=== PATIENT | female | born 1955 | race Caucasian/White ===

== ENCOUNTER 2020-09-15 11:00 | Outpatient (RCR) | payer BC, SELFPAY ==
--- NOTE | 2020-08-23 11:44 | PTOPEVAL ---
INITIAL PHYSICAL THERAPY EVALUATION and PLAN OF CARE Thank you for referring Dea Guillen to [facility] [place] Dea is scheduled to be seen for physical therapy? 2x/week for 2 weeks then 1x/wk x 2 wks. Please review, sign, date and return this plan of care GT. I agree with and certify that the following plan of care is medically necessary. Referring Physician Date Admitting Provider: Attending Provider: Levi Abdi, Referring Provider: *JEFF Outpatient Evaluation Start: 08/23/20 10:36 Freq: Status: Active Protocol: Document 08/23/20 10:36 CHENTE (Rec: 08/23/20 11:43 CHENTE [id number]) Therapy Assessment Status Assessment Status Assessment Status Evaluation Outpatient Past Medical History Past Medical History Source of Past Medical History Patient Neurological History Hx Other Neurological Disorders Yes: peripheral neuropathy Cardiovascular History Hx Hypercholesterolemia Yes Hx Hypertension Yes Endocrine History Hx Diabetes Yes HEENT History Hx Tonsillectomy Yes: at age 6 or 7 Reproductive History Hx Hysterectomy Yes Evaluation Information Problem Diagnosis peripheral neuropathy Onset ~ 1 month ago Subjective Information Began to have trouble with Query Text:As Reported By Patient/ walking, balance. 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 Walking is slower than normal. No difficulties with getting dressed, housework, etc. Sometimes can feel her feet, sometimes they feel heavy. 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 Home calcium, fish oil, vitamin B Meds Must Be Re-entered With Each Visit. complex, extrodil - hormone replacement, baby aspirin Home Setting Home Type House,Multiple Levels Environmental Barriers Mika, Tile,Stairs, 2-4, Stairs, Greater than 4 Living Situation With Parent Mobility Assistive Devices (Used Last 3 None Months) Comments A
--- NOTE | 2020-09-15 12:09 | PTOPEVAL ---
PHYSICAL THERAPY DISCHARGE SUMMARY Thank you for referring Dea Guillen to [facility].? Dea has been seen in PT x 6 visits. She has made gains with gait pattern, balance ability on uneven surfaces, and returning to previous outdoor household activities. She is ready for d/c from PT to [facility]. I agree with Dea's discharge from PT. Referring Physician Date Admitting Provider: Attending Provider: Levi Abdi, Referring Provider: *PT Outpatient Evaluation Start: 08/23/20 10:36 Freq: Status: Active Protocol: Document 09/15/20 11:03 CHENTE (Rec: 09/15/20 12:08 CHENTE [id number]) Therapy Assessment Status Assessment Status Assessment Status Discharge Evaluation Information Problem Diagnosis peripheral neuropathy Subjective Information Dea reports that some Query Text:As Reported By Patient/ days are better than others. Family Some concern over her walking ability with return to work. She did state that she went back to cutting grass with manual mower and did some weed eating. Needed to rest every so often as she had not been doing these activities for awhile. Also walking more - on uneven grass - but will take her cane at times - just in case. Pain Assessment Timing of Pain Assessment Timing of Pain Assessment Assessment Self Report Self Report Pain Level 0 Balance Assessment Florian Balance Assessment Sitting to Standing Independent w/out Hands Unsupported Stance Ability Safely- 2 minutes Sitting Unsupported, Feet on Floor Safely- 2 minutes Standing to Sitting Safely, Minimal Hand Use Transfer Ability Safely, Minimal Hand Use Unsupported Stance- Eyes Closed Safely, 10 seconds Unsupported Stance- Feet Together Independent, 1 minute Reaching Forward while Standing Confidently, 10 inches director occupational Object From Floor Independent/Safe Look Behind Shoulder - Standing Shifts Weight Well Turning 360 Degrees Turns Bilateral, < 4 secs Unsupported Stance, Alternating Feet on (I)- 8 Steps in 20 secs Stair Unsupported Tandem Stance Small Step- 30 seconds Unilateral Leg Stance Lifts Leg/Holds 5-10 secs FLORIAN Balance Evaluation Total Score (/56 53 points) Comments standing on foam - eyes open - no sway, good balance eyes closed - increase sway 30 sec Time Up Go (TUG) Ass
== END 2020-09-20 13:03 | disposition home or self-care (01) ==
LOC: ANHHIPT 11:00
PROVIDERS: PCP Internal Medicine; Visit Provider Internal Medicine
DX: G62.9 Polyneuropathy, unspecified (principal)
CPT/HCPCS: 97110; 97161

== ENCOUNTER 2022-06-27 15:46 | Outpatient (CLI) | payer MEDICARE, SELFPAY ==
[2022-06-29 14:23] LABS: C-Peptide 2.57 ng/mL (0.80-3.85)
[2022-06-30 20:14] LABS: Glutamic acid decarboxylase AA <5 IU/mL (<5)
== END 2022-06-27 15:47 | disposition home or self-care (01) ==
LOC: ANHLAB 15:49
PROVIDERS: PCP Physician Assistant Medical; Visit Provider Internal Medicine
DX: E11.9 Type 2 diabetes mellitus without complications (principal)
CPT/HCPCS: 36415; 84681; 86341

== ENCOUNTER 2022-11-05 09:13 | Outpatient (CLI) | payer MEDICARE, SELFPAY ==
--- NOTE | ~2022-11-05 | MR_ITS ---
MRI of the right foot CLINICAL HISTORY: Osteomyelitis TECHNIQUE: Sagittal T1-weighted and STIR images, axial T1-weighted, T2 fat-sat, and T1 fat-sat images , and coronal T1-weighted and T2 fat-sat images were performed. Following intravenous administration of 13 cc MultiHance gadolinium, T1-weighted fat-sat imaging was performed in the axial, coronal, and sagittal planes. FINDINGS: Examination degraded by motion artifact. There is marrow edema in the distal phalanx of the great toe. T1 marrow signal is largely preserved, however there is questionable focal T1 hypointensi ty and erosive change at the very distal aspect of the distal phalanx of the great toe. There are pro bable moderate osteoarthritis of the interphalangeal joint of the great toe. Remaining joint spaces a re grossly preserved. No significant joint effusion clearly identified. Visualized musculature note is grossly unremarkable. There is mild nonspecific soft tissue enhancemen t in the distal aspect of the great toe. No abscess evident. Flexor and extensor tendons are grossly intact. No fluid collection evident. IMPRESSION: Limited exam due to motion artifact. Questionable focal osteomyelitis at the very distal aspect of th e distal phalanx of the great toe versus stress response. Clinical correlation required. Given the si gnificant motion artifact, consider three-phase bone scan to further evaluate. Probable moderate osteoarthritis of the interphalangeal joint of the great toe. Reviewed, dictated and finalized at [facility]. IMPRESSION: Limited exam due to motion artifact. Questionable focal osteomyelitis at the ve ry distal aspect of the distal phalanx of the great toe versus stress response. Clinical correlation required. Given the significant motion artifact, consider three-phase bone scan to further evaluate. Probable moderate osteoarthritis of the interphalangeal joint of the great toe.
== END 2022-11-05 09:14 | disposition home or self-care (01) ==
PROVIDERS: PCP Physician Assistant Medical; Visit Provider Podiatrist Foot & Ankle Surgery
DX: M86.171 Other acute osteomyelitis, right ankle and foot (principal)
CPT/HCPCS: 73720; A9577

== ENCOUNTER 2022-11-22 10:05 | Outpatient (CLI) | payer MEDICARE, SELFPAY ==
--- NOTE | ~2022-11-22 | XR_ITS ---
XR foot RT min 3V 11/22/2022 13:48 Indication: Osteomyelitis Procedure: 4 views right foot Comparison: No prior studies for comparison. Findings: There are erosive changes involving the tuft of the first distal phalanx, suspicious for os teomyelitis. Moderate soft tissue swelling. There is polyarticular osteoarthritis. Lisfranc joint int act. There is a degenerative calcaneal enthesophyte. Impression: 1: Erosive changes right first distal phalanx, suspicious for osteomyelitis. Reviewed, dictated and finalized at location B. Impression: 1: Erosive changes right first distal phalanx, suspicious for osteomyelitis.
--- NOTE | ~2022-11-22 | NM_ITS ---
EXAMINATION: NM bone 3 phase DATE: 11/22/2022 13:35 INDICATION: Acute osteomyelitis of right ankle and foot. TECHNIQUE: 25 mCi Tc-99m HDP was administered intravenously. Scintigrams of the feet were obtained in angiographic, blood pool, and delayed phases. COMPARISON: Right foot radiographs 11/22/2022, MRI 11/05/2022 FINDINGS: There is increased activity in right first distal phalanx on all phases, consistent with os teoarthritis. There is increased activity in right Lisfranc joint and right first metatarsophalangeal joint on the delayed phase images correlating with osteoarthritis on radiographs. IMPRESSION: 1. Osteomyelitis involving right first distal phalanx. Reviewed, dictated and finalized at location A.
== END 2022-11-22 10:06 | disposition home or self-care (01) ==
PROVIDERS: PCP Physician Assistant Medical; Visit Provider Podiatrist Foot & Ankle Surgery
DX: M86.171 Other acute osteomyelitis, right ankle and foot (principal)
CPT/HCPCS: 73630; 78315; A9503

== ENCOUNTER 2023-05-04 15:11 | Outpatient (CLI) | payer MEDICARE, SELFPAY ==
[2023-05-04 16:00] LABS: Alanine Aminotransferase 22 U/L (6-35); Albumin Level 4.4 g/dL (3.5-5.1); Alkaline Phosphatase 49 U/L (38-126); Anion Gap 4 mmol/L (8-16); Aspartate Amino Transferase 21 U/L (14-36); Bilirubin,Total 0.9 mg/dL (0.2-1.3); Blood Urea Nitrogen 9 mg/dL (7-17); Calcium 10.5 mg/dL (8.4-10.2); Carbon Dioxide 34 mmol/L (22-30); Chloride 95 mmol/L (98-107); Cholesterol 141 mg/dL (0-200); Estimated Glomerular Filt Rate > 60; Glucose 93 mg/dL (65-110); HDL Direct 49 mg/dL; Potassium 3.8 mmol/L (3.4-5.0); Sodium 133 mmol/L (137-145); Triglycerides 114 mg/dL (<150)
[2023-05-04 16:14] LABS: LDL Cholesterol Direct 74 mg/dL
[2023-05-04 16:30] LABS: Thyroid Stimulating Hormone 0.922 uIU/mL (0.465-4.680)
[2023-05-04 16:48] LABS: Free T4 Free Thyroxine 1.04 ng/mL (0.78-2.19)
[2023-05-04 18:41] LABS: Creatinine Urine 23.4 mg/dL
[2023-05-04 19:58] LABS: MALB Creatinine Ratio < 25.6 mg/g (0-30); Microalbumin Urine Random < 6.0 mg/L (0-16.7)
== END 2023-05-04 15:12 | disposition home or self-care (01) ==
LOC: ANHLAB 15:14
PROVIDERS: PCP Family Medicine; Visit Provider Internal Medicine
DX: E78.5 Hyperlipidemia, unspecified (principal); E11.9 Type 2 diabetes mellitus without complications
CPT/HCPCS: 36415; 80053; 80061; 82043; 84439; 84443

== ENCOUNTER 2023-05-10 13:30 | Outpatient (RCR) | payer MEDICARE, SELFPAY | END 2023-07-09 09:38 | disposition home or self-care (01) | LOC: ANHDMC 13:30 | PROVIDERS: PCP Family Medicine; Visit Provider Internal Medicine | DX: E11.65 Type 2 diabetes mellitus with hyperglycemia (principal); E11.649 Type 2 diabetes mellitus with hypoglycemia without coma; Z71.89 Other specified counseling | CPT/HCPCS: G0108 ==

== ENCOUNTER 2023-06-12 14:15 | Outpatient (RCR) | payer MEDICARE, SELFPAY ==
--- NOTE | 2023-03-19 15:57 | PTOPEVAL1 ---
Assessment and note entered by Kandi Mojica, PT Evaluation Information Assessment Status Evaluation Diagnosis polyneuropath unspec, oth signs and sym musculoskeltal system, unspec mononeuropathy Therapy condition Weakness, other abnormalities of gait and mobilty Onset 02/18/2023 Subjective Information Reports had some trouble two years ago, went to therapy and got better. Reports thinks was the same issue with the right leg. States left leg bothers sometimes but right leg is more. States currently can't feel her foot. Diabetic cause has been ruled out. Reports some days doesn't have to use AD, and is careful, but some days has to use AD Denies falls Uses rollator, cane, and hangs on to stuff. Rollator breaks on her rollator are messed up. Is currently unable to drive as well due to being unable to feel her foot sometimes Also has been getting leg cramps and doesn't have pain in right foot but will have tightness. Mother recently had to be put in a home due to dementia. Reported Pain Level Pain Score 0: Self Report Assessment PT Clinical Summary Patient presents with c/o right leg weakness and difficulty. Reports what seems to be high amounts of change in RLE function and symptoms often. She reports two years ago having a similar issues and went to therapy and it got better. PLOF patient was ambulatory with out AD, and going up and down steps to her home without difficulty. She denies tingling and pain in RLE but will have numbness and what she reports as tightness at times. States has also been having RLE cramping at times as well. Pt demo's decreased control and strength of the anterior tibialis and peroneous longus muscles effecting her gait. Also demos a more reflexive RLE compared to LLE patellar tendon reflexes, no clonus of gastrocs, normal resting muscle tone. Pt presents similar to a L5 nerve root impingement however denies consistent back pain or other issues involving her back. Pt may also be demonstrating other nervous system impairments. Pt will benefit from physical therapy to address gait, strength, balance,
--- NOTE | 2023-03-19 15:59 | OPREHPOC ---
Outpatient Therapy Plan of Care This is a Multidisciplinary Plan of Care that may contain components documented by all disciplines (PT, OT, and ST.) PT Problem 1 PT Problem #1 Knowledge Deficit PT Goal 1 Goal Pt will be independent in HEP Pt will verbalize understanding of diagnosis and prognosis Target Visit 6 PT Problem 2 PT Problem #2 Impaired Gait PT Goal 1 Goal Pt will demo appropriate and equal step length with LRAD Target Visit 8 PT Problem 3 PT Problem #3 Impaired Strength PT Goal 1 Goal Pt will demo dorsiflexion strength of 3+/5 Target Visit 8 PT Goal 2 Goal Pt will demo right dorsiflexion strength equal to left ankle dorsiflexion Target Visit 12 PT Problem 4 PT Problem #4 Impaired Functional ADLs PT Goal 1 Goal Pt will report has returned to her PLOF
--- NOTE | 2023-04-27 15:29 | PCPTNOTE ---
Department called and cancelled pt appointment 04/26/23 due to staffing shortage. Pt's POC will resume upon next appointment.
--- NOTE | 2023-05-01 14:54 | PTOPPROG ---
Assessment and note entered by Kandi Mojica, PT Assessment Status Progress Report Diagnosis polyneuropath unspec, oth signs and sym musculoskeletal system, unspec mononeuropathy weakness, other abnormalities of gait and mobility Onset 02/18/2023 Subjective Information Starting to feel her foot again, but still can't do the up and down with her foot. Doesn't think she can drive yet. Feels that she is starting to do better coping with her stress. States she has been able to walk the last few days in her home here and there has been able to walk around the house better than she has been. Pt reports thinks maybe she is handling her stress better. Assessment PT Clinical Summary Pt has attended therapy as much as she is able secondary to transportation restrictions. Pt does demonstrate multiple improvements including greatly improved quality of ambulation, improved speed of ambulation with rollator, and improved strength in multiple planes. However patient has not yet returned to her PLOF, thus patient will benefit from continued therapy to address deficits and continue improvement. Plan of Care Interventions Check Out for Orthotic/Pr,Electrical Stimulation, Gait Training,Hot Pack/Cold Pack,Manual Therapy, Neuro Re-education,Therapeutic Activities, Therapeutic Exercise,Ultrasound PT Services Indicated Yes Treatment Frequency and Cont therapy 1-2x weekly x 8 visits Duration These treatments will address the objective and functional deficits as defined above. The patient will be advanced safely and appropriately in order for the patient to progress towards his/her prior level of function. Additional exercises will be introduced and as well as a comprehensive home exercise program upon discharge, if needed, ?to ensure carryover of functional gains achieved in the clinic. This treatment plan has been reviewed and agreement upon by the patient.
--- NOTE | 2023-06-19 16:22 | PCPTNOTE ---
This treatment is being continued on visit number [id number] Please see documentation on both accounts to view progress. Completed interventions, outcomes, and problems have been marked as Inactive to facilitate the copying of the Care plan routine for recurring accounts.
== END 2023-06-17 23:59 | disposition home or self-care (01) ==
LOC: ANHHIPT 14:15
PROVIDERS: PCP Family Medicine; Visit Provider Family Medicine
DX: R29.898 Other symptoms and signs involving the musculoskeletal system (principal); G57.91 Unspecified mononeuropathy of right lower limb; G62.9 Polyneuropathy, unspecified
CPT/HCPCS: 97110; 97112; 97116; 97162; 97750

== ENCOUNTER 2023-07-17 14:00 | Outpatient (RCR) | payer MEDICARE, SELFPAY ==
--- NOTE | 2023-06-19 16:24 | PCPTNOTE ---
The treatment documented on this account is a continuation of the treatment documented on visit number [id number]. Please see documentation on both accounts to view progress. The Plan of Care has been transitioned and updated within the new V#. I have addressed and agree with the discipline specific Problems, Interventions, and Goals for the current certification period. Completed interventions, outcomes, and problems have been marked as Inactive to facilitate the copying of the Care plan routine for recurring accounts.
--- NOTE | 2023-07-17 17:26 | PTOPDC ---
Assessment and note entered by Kandi Mojica, PT Assessment Status Discharge Diagnosis polyneuropath unspec, oth signs and sym musculoskeltal system, unspec monon Onset 02/18/2023 Subjective Information Pt reports comes and goes still. States right leg won't let her drive. States can't completely feel her foot. Pt reports her diabetes is going hay wire. States after eating goes down and during night it goes down, then morning goes up again. Not real high. States her sugars go below the 80 and above 130 but that the doctors say she is ok. States she doesn't have symptoms Reported Pain Level Pain Score 0: Self Report Assessment PT Clinical Summary Pt appears to have reached a plateau in her therapy at this time. Cont to ambulate with rollator, occasionally with imprvoed step length LLE, cont to show decreased right ankle strength in all planes compared to left, and cont to demo fear with center of gravity neutral in standing without DREDGE PUMPER. Pt has made progress and reports feeling about 50% improved but continually states some days are better and some days are not . Pt appears highly focused on deficits and co- morbidities limiting herself in her progress in certain instances. Pt has been educated on updated HEP as well as when to return to therapy if does not continue to progress independently. Plan of Care PT Services Indicated No
== END 2023-07-20 16:16 | disposition home or self-care (01) ==
LOC: ANHHIPT 14:00
PROVIDERS: PCP Family Medicine; Visit Provider Family Medicine
DX: R29.898 Other symptoms and signs involving the musculoskeletal system (principal); G57.91 Unspecified mononeuropathy of right lower limb; G62.9 Polyneuropathy, unspecified
CPT/HCPCS: 97110; 97112; 97116; 97530; 97750

== ENCOUNTER 2023-09-11 13:35 | Outpatient (CLI) | payer MEDICARE, SELFPAY ==
--- NOTE | 2023-09-11 14:45 | NEURO_ITS ---
Impression: # Complains of inability to relax right foot. # Right neuropathy involving peroneal and posterior tibial nerves. # Needle/EMG exam revealed no fibs or fasciculations but uncontrollable movement (Dystonia of foot) noted. # Clinical correlation recommended. Nerve Conduction Studies Anti Sensory Summary Table Stim Site NR Peak (ms) P-T Amp (?V) Site1 Site2 Delta-P (ms) Dist (cm) Alexander (m/s) Right Sup Fibular Anti Sensory (Ant Lat Mall) NO RESPONSE 14 cm NR 14 cm Ant Lat Mall 16.0 Right Sural Anti Sensory (Lat Mall) Calf 3.3 11.3 Calf Lat Mall 3.3 16.0 48 Motor Summary Table Stim Site NR Onset (ms) O-P Amp (mV) Site1 Site2 Delta-0 (ms) Dist (cm) Alexander (m/s) Right Peroneal Motor (Vastus Med) Ankle 3.9 1.4 Popit Ankle 10.6 38.0 36 Popit 14.5 1.2 Right Tibial Motor (Abd Dumas Brev) Ankle 4.5 1.0 Knee Ankle 10.0 40.0 40 Knee 14.5 0.8 F Wave Studies NR F-Lat (ms) L-R F-Lat (ms) Right Peroneal (Mrkrs) (EDB) 54.97 Right Tibial (Mrkrs) (Abd Hallucis) 56.92 EMG Side Muscle Nerve Root Ins Act Fibs Amp Dur Recrt Comment Right AntTibialis Dp Br Fibular L4-5 Nml Nml Nml Nml Nml Right Gastroc Tibial S1-2 Nml Nml Nml Nml Nml Right Fibularis Long Sup Br Fibular L5-S1 Nml Nml Nml Nml Nml Right Flex Dig Long Tibial L5-S2 Nml Nml Nml Nml Nml Right Ext Dig Brev Dp Br Fibular L5, S1 Nml Nml Nml Nml Nml Right QuadratusFem QuadFemoris L4-5, S1 Nml Nml Nml Nml Nml MTDD
== END 2023-09-11 13:36 | disposition home or self-care (01) ==
PROVIDERS: PCP Family Medicine; Visit Provider Family Medicine
DX: G57.91 Unspecified mononeuropathy of right lower limb (principal)
CPT/HCPCS: 95886; 95908

== ENCOUNTER 2023-10-24 15:53 | Outpatient (CLI) | payer MEDICARE, SELFPAY ==
[2023-10-27 01:24] LABS: Red Blood Cell Folate 108 ng/mL RBC (>280)
[2023-10-27 02:33] LABS: Methylmalonic Acid 316 nmol/L (69-390)
[2023-10-27 15:44] LABS: Vitamin D 1,25 (OH)2 Total 49 pg/mL (18-72); Vitamin D2 1,25 (OH)2 <8 pg/mL; Vitamin D3 1,25 (OH)2 49 pg/mL
[2023-10-28 11:18] LABS: Immunofixation, Serum Normal pattern.
== END 2023-10-24 15:54 | disposition home or self-care (01) ==
LOC: ANHLAB 15:55
PROVIDERS: PCP Physician Assistant Medical; Visit Provider Psychiatry & Neurology Neurology
DX: E11.42 Type 2 diabetes mellitus with diabetic polyneuropathy (principal); E55.9 Vitamin D deficiency, unspecified; G57.91 Unspecified mononeuropathy of right lower limb; M54.50 Low back pain, unspecified; R29.898 Other symptoms and signs involving the musculoskeletal system
CPT/HCPCS: 36415; 82607; 82652; 82747; 83921; 86334

== ENCOUNTER 2023-11-23 12:08 | Outpatient (CLI) | payer MEDICARE, SELFPAY ==
--- NOTE | ~2023-11-23 | MR_ITS ---
EXAMINATION: MR lumbar spine wo con DATE: 11/23/2023 12:49 INDICATION: Low back pain, unspecified. TECHNIQUE: Magnetic resonance imaging (MRI) of the lumbar spine was performed without intravenous con trast. Sequences included sagittal T2-weighted FSE, sagittal T2-weighted FS FSE, sagittal T1-weighted FSE, and axial T2-weighted FSE. COMPARISON: Lumbar spine radiograph 05/01/2023 FINDINGS: There is 13 degrees dextrocurvature of thoracolumbar spine. There is mild chronic anterior wedging of L1 and L2 vertebral bodies. There is mildly decreased disc height at L3-L4, L4-L5, and L5- S1. The distal spinal cord signal intensity is normal. The conus medullaris is at L1. The following d isc levels are specifically discussed: L1-L2: The disc does not extend beyond the endplate margin. There is mild bilateral facet joint osteo arthritis. There is no neural foraminal stenosis. There is no central canal stenosis. L2-L3: The disc is bulging. There is moderate bilateral facet joint osteoarthritis. There is mild jameel ateral neural foraminal stenosis. There is mild central canal stenosis. L3-L4: The disc is bulging and has an annular fissure. There is severe bilateral facet joint osteoart hritis. There is mild bilateral neural foraminal stenosis. There is mild central canal stenosis. L4-L5: The disc is bulging and has an annular fissure. There is severe right and moderate left facet joint osteoarthritis. There is mild bilateral neural foraminal stenosis. There is mild central canal stenosis. L5-S1: The disc is bulging. There is moderate and mild left facet joint osteoarthritis. There is mild bilateral neural foraminal stenosis. There is mild central canal stenosis. IMPRESSION: 1. Mild lumbar spondylosis. 2. Thoracolumbar dextroscoliosis. Reviewed, dictated and finalized at location A.
== END 2023-11-23 12:09 | disposition home or self-care (01) ==
LOC: ANHIMG 12:12
PROVIDERS: PCP Physician Assistant Medical; Visit Provider Psychiatry & Neurology Neurology
DX: E11.42 Type 2 diabetes mellitus with diabetic polyneuropathy (principal); G57.91 Unspecified mononeuropathy of right lower limb; R29.898 Other symptoms and signs involving the musculoskeletal system; M47.896 Other spondylosis, lumbar region
CPT/HCPCS: 72148

== ENCOUNTER 2024-02-22 13:43 | Outpatient (CLI) | payer MEDICARE, SELFPAY ==
--- NOTE | ~2024-02-22 | US_ITS ---
US arterial ankle brachial ind INDICATION: Foot pain. Evaluate for vascular insufficiency. TECHNIQUE: Segmental pressures and plethysmographic and Doppler waveforms of the brachial and lower e xtremity arteries were obtained. COMPARISON: None. FINDINGS: Right and left brachial artery pressures of 133 mm Hg and 134 mm Hg, respectively, are concordant (no rmal difference <= 30 mmHg). The right ankle-brachial index (DEREK) is 1.21 (normal >= 0.9-1.0). The right great toe-brachial index (TBI) is 0.28 (normal >= 0.60). The left DEREK is 1.17. The left TBI is 0.72. IMPRESSION: 1. Diminished right toe brachial index, consistent with peripheral arterial disease. 2: Normal ankle-brachial indices. Reviewed, dictated and finalized at location B. EATIONAL VEHICLE RESORT MANAGER IMPRESSION: 1. Diminished right toe brachial index, consistent with peripheral arterial dis ease. 2: Normal ankle-brachial indices.
--- OUTSIDE RECORDS SUMMARY | 2024-02-22 13:46 | XMS_ITS ---
Author Organization [facility] Address [address] [place], [place] [id number] Care Team Providers Care Biomedical Engineer Name Role Phone RoxanaZoey cisse Unavailable Unavailable ELSY RIOJAS Unavailable [phone] REASON FOR VISIT *General care Encounters Encounter Location Date Provider Diagnosis [facility] [address] [place], [place] [id number] 02/01/2024 ELSY RIOJAS Plan Of Treatment Next Appt Details Provider Name:ELSY NESBITT, 05/01/2024 01:50:00 PM, [address], [facility] [address], [place], [id number], Progress Notes * ADORE PEARSONDOB:[birth year] (68 yo F)Acc No.[id number]:02/01/2024 Patient:?ADORE PEARSON Provider:?Elsy Riojas DPM :1955???Age:68 Y???Sex:Female D ate:02/01/2024 Address:[address], [place], [id number] Subjective: * Chief Complaints: * ???1. *General care. * Medical History:? Objective: * Vitals:? Assessment: Plan: * Treatment: * Billing Information: * Visit Code:? * Procedure Codes:? * Electronic signature of ELSY RIOJAS DPM on 02/22/2024 at 01:46 PM HIGH LIFT OPERATOR Sign off status: Pending * Provider:?Elsy Riojas DPM Date: ?02/01/2024 Generated for Salty mckay/Piedad/Sudhakar on:?02/22/2024 01:46 PM HIGH LIFT OPERATOR
--- OUTSIDE RECORDS SUMMARY | 2024-02-22 13:46 | XMS_ITS ---
Author Organization [facility] Address [address] [facility] [address] [place], [place] [id number] Care Team Providers Care Launch Steward Name Role Phone Roxana, Sara Unavailable Unavailable ELSY RIOJAS Unavailable [phone] Allergies Allergen (clinical drug ingredient) Drug/Non Drug Allergy documented on EMR Reaction Allergy Type Onset Date Status ampicillin Ampicillin Unknown Drug Allergy Activ e Iodine Unknown Drug Allergy Active REASON FOR VISIT *General care Medications Medication SIG (Take, Route, Frequency, Duration) Notes Start Date End Date Status Doxycycline Hyclate 100 MG 1 capsule Ora lly twice a day for 10 days Active Encounters Encounter Location Date Provider Diagnosis [facility] [place] [address] [place], [place] [id number] 02/14/2024 ELSY RIOJAS 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 ; Fungal infection of nail B35.1 ; Atherosclerosis of [place] arteries of extremities with intermittent claudication, bilateral legs I70.213 ; Other acute osteomyelitis, right ankle and foot M86.171 and Pain in right foot M79.671 Assessments Encounter Date Diagnosis (ICD Code) Assessment Notes Treatment Notes Treatment Clinical Notes Section Notes 02/14/2024 Non-pressure chronic ulcer of other part of right foot limited to breakdown of skin (ICD-10 - L97.511) 02/14/2024 Fungal infection of nail (ICD-10 - B35.1) 02/14/2024 Atherosclerosis of [place] arteries of extremities with intermittent claudication, bilateral legs (ICD-10 - I70.213) 02/14/2024 Other acute osteomyelitis, right ankle and foot (ICD-10 - M86.171) 02/14/2024 Pain in right foot (ICD-10 - M79.671) 02/14/2024 Other Nails 1-5 Bilateral were debrided extensively with nail nippers and emery board, reducing length and girth to pink healthy tissue with any subungual debris and necrotic tissue removed Plan Of Treatment Treatment Notes Assessment Notes Other Nails 1-5 Bilateral were debrided extensively with nail nippers and emery board, reducing length and girth to pink healthy tissue with any subungual debris and necrotic tissue removed Next Appt Details Follow Up: 4 Weeks, Reason: Provider Name:ELSY NESBITT, 05/01/2024 01:50:00 PM, [address], [address], [id number], Progress Notes * ADORE GUILLENDOB:[birth year] (68 yo F)Acc No.[id number]:02/14/2024 Patient:?MICHEL ADORE Provider:?Elsy Riojas DPM :1955???Age:68 Y???Sex:Female D ate:02/14/2024 Address:[address] [place], [place] [id number] Subjective: * Chief Complaints: * ???1. *General care. * HPI: ???HPI:?General care?Patient presents to the office for diabetic foot care. Patient states that their nails are thickened, elongated and painful. Patient states that it is aggravated by shoe gear. Onset is gradual. Patient denies taking prescription blood thinners but does take a daily aspirin. Date last seen by Dr. Fischer was 01/2024. Initials sea.? * Medical History:? * Medications:?Taking Doxycycl ine Hyclate 100 MG Capsule 1 capsule Orally twice a day * Allergies:?Ampicillin, Iodin e. Objective: * Vitals:? * Examination: ???Physical Examination: ?Gen:?The patient is awake, alert, well developed, well groomed and well nourished. They are in no apparent distress. .?Musc:?Foot structure is normal bilateral. Muscle strength is 5/5 to all joints bilaterally. There is no pain on palpation. .?Derm:?There is absent hair growth on bilateral feet. There are pigmentary changes of bilateral foot. The skin color is red. The skin texture is thin and shiny. Distal cooling noted in bilateral feet. Nails are thick, discolored, and dystrophic with subungual debris. They are painful to palpation. Ulceration noted distal right 3rd toe has healed.?Neuro:?Grossly intact to light touch bilateral .?Vasc:?Posterior tibialis pulse 0/4 bilaterally. Dorsalis pedis pulse 0/4 bilaterally. Edema of the right hallux noted. Capillary fill time > 3 seconds to all digits. .? Assessment: * Assessment: 1.?Non-pressure chronic ulce r of other part of right foot limited to breakdown of skin - L97.511 (Primary)???2.?Fungal infection of nail - B35.1???3.?Atherosclerosis of [place] arteries of extremities with intermittent claudication, bilateral legs - I70.213???4.?Other acute osteomyelitis, right ankle and foot - M86.171???5.?Pain in right foot - M79.671??? Plan: * Treatment: * Follow Up:?4 Weeks * Billing Information: * Visit Code:? 02306 Office Visit, Est Pt., Level 3. * Procedure Codes:? * Electronic signature of ELSY RIOJAS DPM on 02/22/2024 at 01:46 PM TRANSIT OPERATIONS SUPERVISOR Sign off status: Pending * Provider:?Elsy Riojas DPM Date: ?02/14/2024 Generated for Salty mckay/Piedad/Sudhakar on:?02/22/2024 01:46 PM TRANSIT OPERATIONS SUPERVISOR History and Physical Notes * HPI (History of Present Illness) Category Sub-Category Detail Notes Category Not es HPI General care Patient presents to the office for diabetic foot care. Patient states that their nails are thickened, elongated and painful. Patient states that it is aggravated by shoe gear. Onset is gradual. Patient denies taking prescription blood thinners but does take a daily aspirin. Date last seen by Dr. Fischer was 01/2024. Initials sea Examination Category Sub-Category Detail Notes Category Not es Physical Examination Gen: The patient is awake, alert, well developed, well groomed and well nourished. They are in no apparent distress. Vasc: Posterior tibialis p ulse 0/4 bilaterally. Dorsalis pedis pulse 0/4 bilaterally. Edema of the right hallux noted. Capillary fill time > 3 seconds to all digits. Neuro: Grossly intact to li ght touch bilateral Musc: Foot structure is no rmal bilateral. Muscle strength is 5/5 to all joints bilaterally. There is no pain on palpation. Derm: There is absent hair growth on bilateral feet. There are pigmentary changes of bilateral foot. The skin color is red. The skin texture is thin and shiny. Distal cooling noted in bilateral feet. Nails are thick, discolored, and dystrophic with subungual debris. They are painful to palpation. Ulceration noted distal right 3rd toe has healed
--- OUTSIDE RECORDS SUMMARY | 2024-02-22 13:46 | XMS_ITS ---
Author Organization [facility] Address [address] [place], [place] [id number] Care Team Providers Care Jacquard Loom Fixer Name Role Phone RoxanaZoey schroeder Unavailable Unavailable ELSY RIOJAS Unavailable [phone] Allergies Allergen (clinical drug ingredient) Drug/Non Drug Allergy documented on EMR Reaction Allergy Type Onset Date Status ampicillin Ampicillin Unknown Drug Allergy Activ e Iodine Unknown Drug Allergy Active REASON FOR VISIT *Wound check Medications Medication SIG (Take, Route, Frequency, Duration) Notes Start Date End Date Status Doxycycline Hyclate 100 MG 1 capsule Ora lly twice a day for 10 days Active Social History Tobacco Use: Social History Observation Description Date Details (start date - stop date) Never Smoker NA - NA Tobacco Use/Smoking Question Answer Notes Tobacco use: nonsmoker Encounters Encounter Location Date Provider Diagnosis [facility] [place] [address] [place], [place] [id number] 11/01/2023 ELSY RIOJAS 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 ; Other acute osteomyelitis, right ankle and foot M86.171 and Pain in right foot M79.671 Assessments Encounter Date Diagnosis (ICD Code) Assessment Notes Treatment Notes Treatment Clinical Notes Section Notes 11/01/2023 Non-pressure chronic ulcer of other part of right foot limited to breakdown of skin (ICD-10 - L97.511) 11/01/2023 Other acute osteomyelitis, right ankle and foot (ICD-10 - M86.171) 11/01/2023 Pain in right foot (ICD-10 - M79.671) 11/01/2023 Other Nails 1-5 Bilateral were debrided extensively [...] NESBITT, 05/01/2024 01:50:00 PM, [address], [address], [id number], Progress Notes * RUDDYMAYNOR GARDUNOMandoDOB:[birth year] (68 yo F)Acc No.[id number]:11/01/2023 Patient:?ADORE GUILLEN Provider:?Elsy Riojas DPM :1955???Age:68 Y???Sex:Female D ate:11/01/2023 Address:[address] [place], [place] [id number] Subjective: * Chief Complaints: * ???1. *Wound check. * HPI: ???HPI:?Follow Up Visit?Patient presents for follow-up visit for wound care for right #3 digit. , Patient states their problem is, improving., MA: LB.? * Medical History:?Neuropathy, Diabetic. * Surgical History:?tonsils , hysterectomy . * Social History:?Tobacco Use:?Tobacco Use/Smoking?Tobacco use:?nonsmoker ???Drugs/Alcohol:?Do you drink alcohol?: No. * Medications:?Taking Doxycycl ine Hyclate 100 MG Capsule 1 capsule Orally twice a day * Allergies:?Ampicillin, Iodin e. Objective: * Examination: ???Physical Examination: ?Gen:?The patient is [...] limited to breakdown of skin - L97.511 (Primary)?2.?Other acute osteomyelitis, right ankle and foot - M86.171?3.?Pain in right foot - M79.671? Plan: * Treatment: * Follow Up:?4 Weeks * Billing Information: * Visit Code:? 38597 Office Visit, Est Pt., Level 3. * Procedure Codes:? * Sign off status: Completed true * Provider:?Elsy Riojas DPM Date: ?11/01/2023 Generated for Salty mckay/Piedad/Sherifitting on:?02/22/2024 01:46 PM MEDICAL ONCOLOGY PHYSICIAN History and Physical Notes * HPI (History of Present Illness) Category Sub-Category Detail Notes Category Not es HPI Follow Up Visit Patient presents for follow-up visit for wound care for right #3 digit. , Patient states their problem is, improving., MA: LB Examination Category Sub-Category Detail Notes Category Not [...]
--- OUTSIDE RECORDS SUMMARY | 2024-02-22 13:47 | XMS_ITS | Patient Health Record ---
Author Organization [facility] Address [address] [place], [place] [id number] Care Team Providers Care Regional Psychiatric Director Name Role Phone Zoey Schmidt Unavailable Unavailable ELSY MORENO Unavailable [phone] Allergies Allergen (clinical drug ingredient) Drug/Non Drug Allergy documented on EMR Reaction Allergy Type Onset Date Status ampicillin Ampicillin Unknown Drug Allergy Activ e Iodine Unknown Drug Allergy Active Reason For Referral No Information Medications Medication SIG (Take, Route, Frequency, Duration) Notes Start Date End Date Status Doxycycline Hyclate 100 MG 1 capsule Ora lly twice a day for 10 days Active Immunizations Vaccine Route Administration Date Status Comme nts Influenza, high dose seasonal Unknown 12/21/2022 Admini stered Social History Tobacco Use: Social History Observation Description Date Details (start date - stop date) Never Smoker NA - NA Tobacco Use/Smoking Question Answer Notes Tobacco use: nonsmoker Vital Signs Height-cm 170.18 cm 10/04/2023 Weight-kg 68.04 kg 10/04/2023 Height 67 in 10/04/2023 Weight 150 lbs 10/04/2023 BMI 23.49 kg/m2 10/04/2023 Encounters Encounter Location Date Provider Diagnosis [facility] [place] [address] [place], [place] [id number] 02/14/2024 ELSY MORENO 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 ; Fungal infection of nail B35.1 ; Atherosclerosis of [place] arteries of extremities with intermittent claudication, bilateral legs I70.213 ; Other acute osteomyelitis, right ankle and foot M86.171 and Pain in right foot M79.671 [facility] [place] [address] [place], [place] [id number] 03/02/2023 ELSY JOSH 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 ; Cellulitis of right toe L03.031 ; Other acute osteomyelitis, right ankle and foot M86.171 and Pain in right foot M79.671 [facility] [address] [place] [id number] 05/18/2023 ELSYMAMTA MORENO 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 ; Cellulitis of right toe L03.031 ; Other acute osteomyelitis, right ankle and foot M86.171 and Pain in right foot M79.671 [facility] [place] [address] [place] [id number] 08/30/2023 ELSYMAMTA MORENO 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 ; Other acute osteomyelitis, right ankle and foot M86.171 and Pain in right foot M79.671 [facility] [place] [address] [place] [id number] 09/06/2023 ELSYMAMTA MORENO 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 ; Other acute osteomyelitis, right ankle and foot M86.171 and Pain in right foot M79.671 [facility] [place] [address] [place] [id number] 09/20/2023 ELSYMAMTA MORENO 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 ; Other acute osteomyelitis, right ankle and foot M86.171 and Pain in right foot M79.671 [facility] [address] [place] [id number] 10/04/2023 ELSYMAMTA MORENO 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 ; Other acute osteomyelitis, right ankle and foot M86.171 and Pain in right foot M79.671 [facility] [address] [place] [id number] 11/01/2023 ELSY MORENO 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 ; Other acute osteomyelitis, right ankle and foot M86.171 and Pain in right foot M79.671 Assessments Encounter Date Diagnosis (ICD Code) Assessment Notes Treatment Notes Treatment Clinical Notes Section Notes 03/02/2023 Non-pressure chronic ulcer of other part of right foot limited to breakdown of skin (ICD-10 - L97.511) 05/18/2023 Non-pressure chronic ulcer of other part of right foot limited to breakdown of skin (ICD-10 - L97.511) 08/30/2023 Non-pressure chronic ulcer of other part of right foot limited to breakdown of skin (ICD-10 - L97.511) 09/06/2023 Non-pressure chronic ulcer of other part of right foot limited to breakdown of skin (ICD-10 - L97.511) 09/20/2023 Non-pressure chronic ulcer of other part of right foot limited to breakdown of skin (ICD-10 - L97.511) 10/04/2023 Non-pressure chronic ulcer of other part of right foot limited to breakdown of skin (ICD-10 - L97.511) 11/01/2023 Non-pressure chronic ulcer of other part of right foot limited to breakdown of skin (ICD-10 - L97.511) 02/14/2024 Non-pressure chronic ulcer of other part of right foot limited to breakdown of skin (ICD-10 - L97.511) 02/14/2024 Fungal infection of nail (ICD-10 - B35.1) 11/01/2023 Other acute osteomyelitis, right ankle and foot (ICD-10 - M86.171) 02/14/2024 Atherosclerosis of lower [place] arteries of extremities with intermittent claudication, bilateral legs (ICD-10 - I70.213) 09/20/2023 Other acute osteomyelitis, right ankle and foot (ICD-10 - M86.171) 10/04/2023 Other acute osteomyelitis, right ankle and foot (ICD-10 - M86.171) 08/30/2023 Other acute osteomyelitis, right ankle and foot (ICD-10 - M86.171) 09/06/2023 Other acute osteomyelitis, right ankle and foot (ICD-10 - M86.171) 05/18/2023 Cellulitis of right toe (ICD-10 - L03.031) 03/02/2023 Cellulitis of right toe (ICD-10 - L03.031) 03/02/2023 Other acute osteomyelitis, right ankle and foot (ICD-10 - M86.171) 05/18/2023 Other acute osteomyelitis, right ankle and foot (ICD-10 - M86.171) 09/06/2023 Pain in right foot (ICD-10 - M79.671) 08/30/2023 Pain in right foot (ICD-10 - M79.671) 09/20/2023 Pain in right foot (ICD-10 - M79.671) 10/04/2023 Pain in right foot (ICD-10 - M79.671) 11/01/2023 Pain in right foot (ICD-10 - M79.671) 02/14/2024 Other acute osteomyelitis, right ankle and foot (ICD-10 - M86.171) 02/14/2024 Pain in right foot (ICD-10 - M79.671) 05/18/2023 Pain in right foot (ICD-10 - M79.671) 03/02/2023 Pain in right foot (ICD-10 - M79.671) 02/14/2024 Other Nails 1-5 Bilateral were debrided extensively with nail nippers and emery board, reducing length and girth to pink healthy tissue with any subungual debris and necrotic tissue removed 03/02/2023 Other The ulcer is closed so less frequent follow up is needed.. The patient was instructed to minimize pressure on the wound and to call the office immediately if the wound should start to worsen. Continue with abx per ID 05/18/2023 Other The ulcer is closed so less frequent follow up is needed.. The patient was instructed to minimize pressure on the wound and to call the office immediately if the wound should start to worsen. 08/30/2023 Other The ulcer was debrided down to bleeding tissue. A dry sterile dressing was applied. The patient was given instruction on home dressing and told to use antibiotic ointment on the wound. The patient was instructed to minimize pressure on the wound and to call the office immediately if the wound should start to worsen. 08/30/2023 Other The ulcer was debrided down to bleeding tissue. A dry sterile dressing was applied. The patient was given instruction on home dressing and told to use antibiotic ointment on the wound. The patient was instructed to minimize pressure on the wound and to call the office immediately if the wound should start to worsen. 09/06/2023 Other The ulcer was debrided down to bleeding tissue. A dry sterile dressing was applied. The patient was given instruction on home dressing and told to use antibiotic ointment on the wound. The patient was instructed to minimize pressure on the wound and to call the office immediately if the wound should start to worsen. The ulcer was debrided down to bleeding tissue. A dry sterile dressing was applied. The patient was given instruction on home dressing and told to use antibiotic ointment on the wound. The patient was instructed to minimize pressure on the wound and to call the office immediately if the wound should start to worsen. 09/20/2023 Other The ulcer was debrided down to bleeding tissue. A dry sterile dressing was applied. The patient was given instruction on home dressing and told to use antibiotic ointment on the wound. The patient was instructed to minimize pressure on the wound and to call the office immediately if the wound should start to worsen. The ulcer was debrided down to bleeding tissue. A dry sterile dressing was applied. The patient was given instruction on home dressing and told to use antibiotic ointment on the wound. The patient was instructed to minimize pressure on the wound and to call the office immediately if the wound should start to worsen. 10/04/2023 Other The ulcer was debrided down to bleeding tissue. A dry sterile dressing was applied. The patient was given instruction on home dressing and told to use antibiotic ointment on the wound. The patient was instructed to minimize pressure on the wound and to call the office immediately if the wound should start to worsen. 11/01/2023 Other Nails 1-5 Bilateral were debrided extensively with nail nippers and emery board, reducing length and girth to pink healthy tissue with any subungual debris and necrotic tissue removed Plan Of Treatment Next Appt Details Provider Name:ELSY NESBITT, 05/01/2024 01:50:00 PM, [address], [address], [id number], Insurance Providers Payer Name Payer Address Payer Phone Subscriber Number Group Number Insured Name Patient Relationship to Insured Coverage Start Date Coverage End Date [facility] [address] [address] [place] [id number] ADORE GUILLEN Self - patient is the insured Medical (General) History Medical History History ICD Code neuropathy Diabetic Surgical History Surgery Date(Month/Year) tonsils hysterectomy
== END 2024-02-22 13:44 | disposition home or self-care (01) ==
PROVIDERS: PCP Physician Assistant Medical; Visit Provider Internal Medicine
DX: L97.519 Non-pressure chronic ulcer of other part of right foot with unspecified severity (principal)
CPT/HCPCS: 93922

== ENCOUNTER 2024-04-30 13:08 | Outpatient (CLI) | payer MEDICARE, SELFPAY ==
--- OUTSIDE RECORDS SUMMARY | 2024-04-30 13:14 | XMS_ITS | Clinical Summary ---
Author Organization [facility] Address Formerly [facility], later [facility] [place] [address] Care Team Providers Care Tunnel Heading Inspector Name Role Phone Zoey Fischer PA-C Primary Care Provider [phone] Family History Medical History Relation Comments Breast Cancer Neg Hx Social History Tobacco Use Types Packs/Day Years Used Date Smoking Tobacco: Never Assessed Comments Unknown Sex and Gender Information Value Date Recorded Sex Assigned at Not on file Legal Sex Female 8:16 PM CDT Gender Identity Not on file Sexual Orientation Not on file Plan of Treatment Health Maintenance Due Date Last Done Comments Colorectal Cancer Screening Colonoscopy (10 Years) 1955 Hepatitis C 1974 DTaP, Tdap and Td Vaccines ( 1 - Tdap) 09/30/1975 Zoster Vaccines (1 of 2) 2006 Mammogram Screening 01/17/2021 01/17/2019 Pneumococcal Vaccine: 65+ Years (1 of 1 - PCV) 2021 COVID-19 Vaccine (4 - 2023-2 5 season) 2023 07/19/2021, 2020, 09/01/2020 Influenza Adult (#1) 2023 RSV Immunization or 60+ Years (1 - 1-dose 75+ series) 09/30/2031 Dexa Scan (General) Completed 01/17/2019 Meningococcal B Vaccine Aged Out No l onger eligible based on patient's age to complete this topic Meningococcal Vaccine Aged Out No kaylene raya eligible based on patient's age to complete this topic RSV Immunizations Under 20 Months Aged Out No longer eligible b ased on patient's age to complete this topic Procedures Procedure Name Priority Date/Time Associated Diagnosis Comments BONE DENSITY/DEXA Routine 01/17/2019 12: 20 PM HAND MOLDER MEAT Postmenopausal status MG SCREENING W SCOUT MARIE DIGI Routine 01/17/2019 12:19 PM HAND MOLDER MEAT Screening breast examination from Last 3 Months or Most Recently Relevant to Health Maintenance Results * BONE DENSITY/DEXA (01/17/2019 12:20 PM HAND MOLDER MEAT) Anatomical Region Laterality Modality Bone Bone Density 01/17/2019 12:5 3 PM HAND MOLDER MEAT Impressions 01/17/2019 12:54 PM HAND MOLDER MEAT IMPRESSION: LUMBAR SPINE L2-L4: BMD: 1.121 g/sq cm. T-score: 0.4. Prior T score: 0.9. WHO classification: Normal young adult range. Fracture risk: Very low fracture risk. FEMORAL NECK: BMD: 0.851 g/sq cm. T-score: 0.0. Prior T score: 0.5. WHO classification: Normal young adult range. Fracture risk: Very low fracture risk. Interpreted By: Tj Archuleta, 01/17/2019 12:53 PM Narrative 01/17/2019 12:54 PM HAND MOLDER MEAT IMAGING STUDIES: BONE DENSITY/DEXA DATE: 01/17/2019 12:00 PM INDICATION: Osteoporosis. Asymptomatic menopausal state. COMPARISON: 04/29/2010 Procedure Note Tj Archuleta MD - 01/17/2019 IMAGING STUDIES: BONE DENSITY/DEXA DATE: 01/17/2019 12:00 PM INDICATION: Osteoporosis. Asymptomatic menopausal state. COMPARISON: 04/29/2010 IMPRESSION: LUMBAR SPINE L2-L4: BMD: 1.121 g/sq cm. T-score: 0.4. Prior T score: 0.9. WHO classification: Normal young adult range. Fracture risk: Very low fracture risk. FEMORAL NECK: BMD: 0.851 g/sq cm. T-score: 0.0. Prior T score: 0.5. WHO classification: Normal young adult range. Fracture risk: Very low fracture risk. Interpreted By: Tj Archuleta, 01/17/2019 12:53 PM Ashley Hassan MD DEXA Final Resul t * MG SCREENING W SCOUT MARIE DIGI (01/17/2019 12:19 PM HAND MOLDER MEAT) Anatomical Region Laterality Modality Breast Bilateral Mammography 01/17/2019 12:5 4 PM HAND MOLDER MEAT Narrative 01/17/2019 12:56 PM HAND MOLDER MEAT IMAGING STUDIES: MG SCREENING W SCOUT MARIE DIGI DATE: 01/17/2019 12:00 PM INDICATION: screening. COMPARISON: 04/29/2010, 01/22/2008. FINDINGS: Bilateral CC and MLO views, digital with CAD. 2-D with 3-D tomosynthesis. Breast compostition: Category B - There are areas of scattered fibroglandular density. No suspicious microcalcification, worrisome mass or evidence of architectural distortion. No skin thickening or nipple retraction. Benign microcalcifications. CONCLUSION: No mammographic evidence of malignancy. BI-RADS Category 2 - benign findings. Routine screening mammography recommended [facility] BI-RADS Categories: Category 0 - needs additional imaging evaluation. Category 1 - negative. Category 2 - benign findings. Category 3 - probably benign findings, but short interval follow-up is recommended. Category 4 - suspicious abnormality and biopsy should be considered though the lesion may well be benign. Category 5 - highly suggestive of malignancy and appropriate action should be taken. A) A negative report should not delay a biopsy if a dominant or clinically suspicious mass is present. B) Adenosis and dense breasts may obscure an underlying neoplasm. C) Study interpreted with computer aided detection. Interpreted By: Tj Archuleta, 01/17/2019 12:54 PM Ashley Hassan MD MAMMO Final Resul t from Last 3 Months or Most Recently Relevant to Health Maintenance Insurance [facility] Care Teams Tunnel Heading Inspector Relationship Specialty Start Date End Date Zoey Fischer PA-C PCP - General NURSE PRACTITIONER 01/07/19
--- OUTSIDE RECORDS SUMMARY | 2024-04-30 13:15 | XMS_ITS | Referral Summary ---
Author Organization [facility] Building [address] Address [address] [place] [address] Care Team Providers Care Customer Support Coordinator Name Role Phone AmadoZoey cisse MELANIE Primary Care Provider [phone] Encounters Date Type Department Care Team Description 03/19/2024 10:00 AM TRANSPORT AIRCREWMAN Ancillary Procedure [facility] Vascular and Vein Surgery at [address] [phone] Peripheral vascular disease, unspecified (HCC) 03/19/2024 Orders Only [facility] Vascular at [address] [phone] Shaggy Vasquez MD Peripheral vascular disease, unspecified (HCC) (Primary Dx) 03/19/2024 9:30 AM TRANSPORT AIRCREWMAN Office Visit [facility] Vascular at [address] [phone] Shaggy Vasquez MD Peripheral vascular disease, unspecified (HCC) (Primary Dx); Mixed hyperlipidemia; Primary hypertension from Last 3 Months Allergies Active Allergy Reactions Criticality Noted Date Comments Ampicillin Rash Medium 12/28/2022 Iodinated Contrast Media Rash Medium 12/28/2022 Medications metFORMIN XR (GLUCOPHAGE XR) 500 mg 24 hr tablet Take 2 tablets (1,000 mg total) by mouth daily with breakfast 3 Active metoprolol XL (TOPROL-XL) 25 mg extended release tablet Take 0.5 tablets (12.5 mg total) by mouth daily 3 Active simvastatin (ZOCOR) 40 mg tablet Take 1 tablet (40 mg total) by mouth daily 3 Active Farxiga 10 mg tablet Take 1 tablet (10 mg total) by mouth daily 3 Active Januvia 100 mg tablet Take 1 tablet (100 mg total) by mouth daily 3 Active lisinopril-hydr oCHLOROthiazide (ZESTORETIC) 20-25 mg per tablet Take 1 tablet by mouth daily 3 Active meloxicam (MOBIC) 15 mg tablet Take 1 tablet (15 mg total) by mouth as needed 3 Active estradioL (ESTRACE) 0.5 mg tablet Take 1 tablet (0.5 mg total) by mouth every other day 3 Active levoFLOXacin (LEVAQUIN) 750 mg tablet Take 1 tablet (750 mg total) by mouth daily 3 Active OneTouch Delica Plus Lancet 33 gauge misc USE TO CHECK GLUCOSE THREE TIMES DAILY 3 Active glimepiride (AMARYL) 2 mg tabletIndicatio ns:type 2 diabetes mellitus Take 1 tablet (2 mg total) by mouth daily before breakfast Active aspirin 81 mg enteric coated tablet Take 1 tablet (81 mg total) by mouth daily Active folic acid (FOLVITE) 1 mg tablet Take 1 tablet (1 mg total) by mouth daily Active DULoxetine DR (CYMBALTA) 30 mg capsule Take 1 capsule (30 mg total) by mouth daily Active cyanocobalamin (Vitamin B-12) 1,000 mcg tabletIndicatio ns:Prevention of Vitamin B12 Deficiency Take 1 tablet (1,000 mcg total) by mouth daily Active multivitamin tabletIndicatio ns:Vitamin Deficiency Prevention Take 1 tablet by mouth Active ascorbic acid (vitamin C) 1,000 mg tablet Take 1 tablet (1,000 mg total) by mouth daily Active calcium carbonate (TUMS) 1,000 mg (400 mg elemental) tablet,chewable 400 mg Acti ve vitamin B complex capsule Take 1 capsule by mouth daily Active fish oil-dha-epa 1,200-144-216 mg capsule Take by mouth Activ e Active Problems Problem Noted Date Diagnosed Date Peripheral vascular disease, unspecified 025 Assessment & Plan (03/20/2024 1:14 PM TRANSPORT AIRCREWMAN): No evidence of large vessel PVD ABIs and waveforms normal. Evidence of inframalleolar occlusive disease we discussed the importance of strict glucose control local wound care and follow up with her electrical and electronic assembler. Can follow up with me as needed. Mixed hyperlipidemia 03/19/2024 Assessment & Plan (03/19/2024 9:51 AM TRANSPORT AIRCREWMAN): Stable continue simvastatin Primary hypertension 03/19/2024 Assessment & Plan (03/19/2024 9:52 AM TRANSPORT AIRCREWMAN): Stable continue lisinopril hydrochlorothiazide Social History Tobacco Use Types Packs/Day Years Used Date Smoking Tobacco: Never Smokeless Tobacco: Never Comments Unknown Sex and Gender Information Value Date Recorded Sex Assigned at Not on file Legal Sex Female 10:54 AM CDT Gender Identity Not on file Sexual Orientation Not on file Last Filed Vital Signs Vital Sign Reading Time Taken Comments Blood Pressure 134/82 03/19/2024 9:39 AM TRANSPORT AIRCREWMAN Pulse 82 03/19/2024 9:39 AM TRANSPORT AIRCREWMAN Temperature 36.4 C (97.6 F) 01/25/2023 1:38 PM TRANSPORT AIRCREWMAN Respiratory Rate - - Oxygen Saturation 100% 03/19/2024 9:39 AM TRANSPORT AIRCREWMAN Inhaled Oxygen Concentration - - Weight 54.4 kg (120 lb) 03/19/2024 9:39 AM TRANSPORT AIRCREWMAN Height 170.2 cm (5' 7 ) 03/19/2024 9:39 AM TRANSPORT AIRCREWMAN Body Mass Index 18.79 03/19/2024 9:39 AM TRANSPORT AIRCREWMAN Plan of Treatment Not on file Procedures Procedure Name Priority Date/Time Associated Diagnosis Comments US ARTERIAL DOPPLER LOWER EXTREMITY BILATERAL Schedule Routine, Read Routine (OP Routine) 03/19/2024 10:41 AM TRANSPORT AIRCREWMAN Peripheral vascular disease, unspecified (HCC) from Last 3 Months Results * US Arterial Doppler Lower Extremity Bilateral (03/19/2024 10:41 AM TRANSPORT AIRCREWMAN) LV EF % CONS SCIMAGE Anatomical Region Laterality Modality Vascular Bilateral Ultrasound 03/19/2024 10:1 1 AM TRANSPORT AIRCREWMAN Narrative 03/21/2024 1:19 PM TRANSPORT AIRCREWMAN Vascular & Vein Surgery [address] [place] [address]. [place] [address] Lower Extremity Arterial Doppler Report Patient Name: DEA GUILLEN : 1955 Study Date: 03/19/2024 10:11:00 AM Gender: F Building Rental Manager: Ni Leon RVT Location: [facility] Ref Provider: SHAGGY VASQUEZ Quality: Adequate Order Provider: SHAGGY VASQUEZ PROCEDURES: Arterial Report: Bilateral lower extremity arterial Doppler exam at rest. INDICATIONS: BLE toe wounds and I73.9 Peripheral vascular disease, unspecified. HISTORY: Hypertension. Hyperlipidemia. Diabetic. MEASUREMENTS: Right Value Left Value Rt Brachial Pressure 116 mmHg Lt Brachial Pressure 124 mmHg Rt REGIONAL SALES LEADER Pressure 157 mmHg Lt REGIONAL SALES LEADER Pressure 152 mmHg Rt DPA Pressure 145 mmHg Lt DPA Pressure 142 mmHg Rt 1st Digit Pressure 44 mmHg Lt 1st Digit Pressure 95 mmHg Rt PT DEREK Resting 1.27 Lt PT DEREK Resting 1.23 Rt DP DEREK Resting 1.17 Lt DP DEREK Resting 1.15 Rt Digit 1/Arm Index 0.35 Lt Digit 1/Arm Index 0.77 - FINDINGS: Right Common Femoral Artery Analysis: The common femoral artery waveform is triphasic. Right Popliteal Artery Analysis: The popliteal waveform is triphasic. Right Posterior Tibial Artery Analysis: The posterior tibial waveform is triphasic. Right Anterior Tibial Artery Analysis: The anterior tibial waveform is triphasic. Right Digits: The right digit waveform is dampened. Left Common Femoral Artery Analysis: The common femoral artery waveform is triphasic. Left Popliteal Artery Analysis: The popliteal waveform is triphasic. Left Posterior Tibial Artery Analysis: The posterior tibial waveform is triphasic. Left Anterior Tibial Artery Analysis: The anterior tibial waveform is triphasic. Left Digits: Normal left digit pressure and waveform. Comments: All digit waveforms attached in images. CONCLUSIONS: 1. Ankle-brachial index of 0.9-1.3 is within normal limits in the bilateral lower extremities. ATTESTATION: I have reviewed and interpreted the pertinent images and measurements of this study. I attest to the conclusions in the final report that is provided above. Electronically Signed By: Shaggy Vasquez MD [facility] 03/21/2024 1:17:56 PM TRANSPORT AIRCREWMAN Procedure Note Shaggy Vasquez MD - 03/21/2024 Vascular & Vein Surgery [address] [place] [address] Lower Extremity Arterial Doppler Report Patient Name: DEA GUILLEN : 1955 Study Date: 03/19/2024 10:11:00 AM Gender: F Building Rental Manager: Ni Leon RVT Location: [facility] Provider: SHAGGY VASQUEZ Quality: Adequate Order Provider: SHAGGY VASQUEZ PROCEDURES: Arterial Report: Bilateral lower extremity arterial Doppler exam at rest. INDICATIONS: BLE toe wounds and I73.9 Peripheral vascular disease, unspecified. HISTORY: Hypertension. Hyperlipidemia. Diabetic. MEASUREMENTS: Right Value Left Value Rt Brachial Pressure 116 mmHg Lt Brachial Pressure 124 mmHg Rt REGIONAL SALES LEADER Pressure 157 mmHg Lt REGIONAL SALES LEADER Pressure 152 mmHg Rt DPA Pressure 145 mmHg Lt DPA Pressure 142 mmHg Rt 1st Digit Pressure 44 mmHg Lt 1st Digit Pressure 95 mmHg Rt PT DEREK Resting 1.27 Lt PT DEREK Resting 1.23 Rt DP DEREK Resting 1.17 Lt DP DEREK Resting 1.15 Rt Digit 1/Arm Index 0.35 Lt Digit 1/Arm Index 0.77 - FINDINGS: Right Common Femoral Artery Analysis: The common femoral artery waveform is triphasic. Right Popliteal Artery Analysis: The popliteal waveform is triphasic. Right Posterior Tibial Artery Analysis: The posterior tibial waveform is triphasic. Right Anterior Tibial Artery Analysis: The anterior tibial waveform is triphasic. Right Digits: The right digit waveform is dampened. Left Common Femoral Artery Analysis: The common femoral artery waveform is triphasic. Left Popliteal Artery Analysis: The popliteal waveform is triphasic. Left Posterior Tibial Artery Analysis: The posterior tibial waveform is triphasic. Left Anterior Tibial Artery Analysis: The anterior tibial waveform is triphasic. Left Digits: Normal left digit pressure and waveform. Comments: All digit waveforms attached in images. CONCLUSIONS: 1. Ankle-brachial index of 0.9-1.3 is within normal limits in thebilateral lower extremities. ATTESTATION: I have reviewed and interpreted the pertinent images and measurements ofthis study. I attest to the conclusions in the final report that is provided above. Electronically Signed By: Shaggy Vasquez MD [facility] 03/21/2024 1:17:56 PM TRANSPORT AIRCREWMAN Shaggy Vasquez MD [facility] PROCEDURES Final Result from Last 3 Months [place] [address] Care Teams Customer Support Coordinator Relationship Specialty Start Date End Date Zoey Fischer PA [address] [place] [address] [phone] PCP - General Family Practice 12/20/22
--- OUTSIDE RECORDS SUMMARY | 2024-04-30 13:15 | XMS_ITS | Patient Health Record ---
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 ; Cellulitis of right toe L03.031 ; Other acute osteomyelitis, right ankle and foot M86.171 and Pain in right foot M79.671 [facility] [place] [address] [place] [id number] 08/30/2023 ELSY JOSH 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 ; Other acute osteomyelitis, right ankle and foot M86.171 and Pain in right foot M79.671 [facility] [address] [place] [id number] 09/06/2023 ELSY HUANGBURG 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 ; Other acute osteomyelitis, right ankle and foot M86.171 and Pain in right foot M79.671 [facility] [address] [place] [address] [id number] 09/20/2023 ELSY JOSH 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 ; Other acute osteomyelitis, right ankle and foot M86.171 and Pain in right foot M79.671 [facility] [address] [place] [id number] 10/04/2023 ELSY JOSH 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 ; Other acute osteomyelitis, right ankle and foot M86.171 and Pain in right foot M79.671 [facility] [address] [place] [id number] 11/01/2023 ELSYMAMTA MORENO 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 ; Other acute osteomyelitis, right ankle and foot M86.171 and Pain in right foot M79.671 [facility] [place] [address] [place] [address] [id number] 02/14/2024 ELSY JOSH 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 ; Fungal infection of nail B35.1 ; Atherosclerosis of upper sioux arteries of extremities with intermittent claudication, bilateral legs I70.213 ; Other acute osteomyelitis, right ankle and foot M86.171 and Pain in right foot M79.671 Assessments Encounter Date Diagnosis (ICD Code) Assessment Notes Treatment Notes Treatment Clinical Notes Section Notes 05/18/2023 Non-pressure chronic ulcer of other part [...] foot (ICD-10 - M86.171) 02/14/2024 Atherosclerosis of upper sioux arteries of extremities with intermittent claudication, bilateral legs (ICD-10 - I70.213) 09/20/2023 Other acute osteomyelitis, right ankle and foot (ICD-10 - M86.171) 10/04/2023 Other acute osteomyelitis, right ankle and foot (ICD-10 - M86.171) 08/30/2023 Other acute osteomyelitis, right ankle and foot (ICD-10 - M86.171) 09/06/2023 Other acute osteomyelitis, right ankle and foot (ICD-10 - M86.171) 05/18/2023 Cellulitis of right toe (ICD-10 - L03.031) 05/18/2023 Other acute osteomyelitis, right ankle and [...] in right foot (ICD-10 - M79.671) 05/18/2023 Other The ulcer is closed so [...] any subungual debris and necrotic tissue removed 02/14/2024 Other Nails 1-5 Bilateral were debrided extensively with nail nippers and emery board, reducing length and girth to pink healthy tissue with any subungual debris and necrotic tissue removed Plan Of Treatment Next Appt Details Provider Name:ELSY NESBITT, 05/22/2024 02:20:00 PM, [address], [address], [phone], Insurance Providers Payer Name Payer Address Payer Phone Subscriber Number Group Number Insured Name Patient Relationship to Insured Coverage Start Date Coverage End Date [facility] [address] [address] [place] [address] [id number] ADORE GUILLEN Self - patient is the insured Medical (General) History Medical History History ICD Code neuropathy Diabetic Surgical History Surgery Date(Month/Year) tonsils hysterectomy
--- OUTSIDE RECORDS SUMMARY | 2024-04-30 13:15 | XMS_ITS ---
Author Organization [facility] Address [address] [place], [place] [id number] Care Team Providers Care Iuss Master Analyst Name Role Phone RoxanaZoey schroeder Unavailable Unavailable ELSY RIOJAS Unavailable [phone] Allergies Allergen (clinical drug ingredient) Drug/Non Drug [...] Location Date Provider Diagnosis [facility] [place] [address] [place], [place] [phone] 11/01/2023 ELSY RIOJAS Non-pressure chronic ulcer of [...] Up: 4 Weeks, Reason: Provider Name:ELSY NESBITT, 05/22/2024 02:20:00 PM, [address], [address], [phone], Progress Notes * RUDDYMAYNOR GARDUNOMandoDOB:[birth year] (68 yo F)Acc No.[id number]:11/01/2023 Patient: ADORE RICHTER Provider: Kwaku Riojas DPM :1955 A ge:68 Y S ex:Female Date:11/01/2023 Address:[address] [place], [place] [phone] Subjective: * Chief Complaints: * 1 . *Wound check. * HPI: H PI: Follow Up Visit P nhan presents for follow-up visit for wound care for right #3 digit. , Patient states their problem is, improving., MA: LB. * Medical History: N europathy, Diabetic. * Surgical History: t onsils , hysterectomy . * Social History: T obacco Use: T obacco Use/Smoking T obacco use: n onsmoker D rugs/Alcohol: D o you drink alcohol?: No. * Medications: T aking Doxycycline Hyclate 100 MG Capsule 1 capsule Orally twice a day * Allergies: A mpicillin, Iodine. Objective: * Examination: P hysical Examination: Gen: T he patient is awake, alert, well developed, well groomed and well nourished. They are in no apparent distress. . Musc: F oot structure is normal bilateral. Muscle strength is 5/5 to all joints bilaterally. There is no pain on palpation. . Derm: T here is absent hair growth on bilateral feet. There are pigmentary changes of bilateral foot. The skin color is red. The skin texture is thin and shiny. Distal cooling noted in bilateral feet. Nails are thick, discolored, and dystrophic with subungual debris. They are painful to palpation. Ulceration noted distal right 3rd toe has healed. Neuro: G rossly intact to light touch bilateral . Vasc: P osterior tibialis pulse 0/4 bilaterally. Dorsalis pedis pulse 0/4 bilaterally. Edema of the right hallux noted. Capillary fill time > 3 seconds to all digits. . Assessment: * Assessment: 1. 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 O ther acute osteomyelitis, right ankle and foot - M86.171 3 . P ain in right foot - M79.671 Plan: * Treatment: * Follow Up: 4 Weeks * Billing Information: * Visit Code: 31038 Office Visit, Est Pt., Level 3. * Procedure Codes: * Sign off status: Completed true * Provider: Kwaku Riojas DPM Date: 0 11/01/2023 Generated for Salty mckay/Piedad/Sudhakar on: 0 04/30/2024 01:14 PM DIVORCE ATTORNEY History and Physical Notes * HPI (History [...]
--- OUTSIDE RECORDS SUMMARY | 2024-04-30 13:15 | XMS_ITS ---
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 ; Fungal infection of nail B35.1 ; Atherosclerosis of capitan grande band arteries of extremities with intermittent claudication, bilateral [...] nail (ICD-10 - B35.1) 02/14/2024 Atherosclerosis of capitan grande band arteries of extremities with intermittent claudication, bilateral [...] NESBITT, 05/22/2024 02:20:00 PM, [address], [address], [id number], Progress Notes * ADORE GUILLENDOB:[birth year] (68 yo F)Acc No.[id number]:02/14/2024 Patient: ADORE RICHTER Provider: Kwaku Riojas DPM :1955 A ge:68 Y S ex:Female Date:02/14/2024 Address:[address] [place], [place] [phone] Subjective: * Chief Complaints: * * General care * HPI: H PI: General care P atient presents to the office for diabetic foot care. Patient states that their nails are thickened, elongated and painful. Patient states that it is aggravated by shoe gear. Onset is gradual. Patient denies taking prescription blood thinners but does take a daily aspirin. Date last seen by Dr. Fischer was 01/2024. Initials sea. * Medical History: * Surgical History: * Hospitalization/Major Diagno stic Procedure: * Medications: T akingDoxycycline Hyclate 100 MG Capsule 1 capsule Orally twice a day Taking Doxycycline Hyclate 100 MG Capsule 1 capsule Orally twice a day * Allergies: A mpicillinIodine Objective: * Vitals: * Examination: P hysical Examination: Gen: T [...] of skin - L97.511 (Primary) 2 . F ungal infection of nail - B35.1 3 . A therosclerosis of capitan grande band arteries of extremities with intermittent claudication, bilateral legs - I70.213 4 . O ther acute osteomyelitis, right ankle and foot - M86.171 ?5. P ain in right foot - M79.671 Plan: * Treatment: * Procedure Codes: * Follow Up: 4 Weeks * Billing Information: * Visit Code: 73337 Office Visit, Est Pt., Level 3. * Procedure Codes: * ENGINEER Sign off status: Completed true * Provider: Kwaku Riojas DPM Date: 04/16/2023 Generated for Salty mckay/Piedad/Sudhakar on: 0 04/30/2024 01:15 PM LEAD ENGINEER History and Physical Notes * HPI (History [...]
--- OUTSIDE RECORDS SUMMARY | 2024-04-30 13:15 | XMS_ITS ---
Author Organization [facility] Address [address] [place], [place] [id number] Care Team Providers Care Director Of Infection Control Name Role Phone RoxanaZoey cisse Unavailable Unavailable ELSY RIOJAS Unavailable [phone] REASON FOR VISIT *General care Encounters Encounter Location Date Provider Diagnosis [facility] [address] [place], [place] [id number] 02/01/2024 ELSY RIOJAS Plan Of Treatment Next Appt Details Provider Name:ELSY NESBITT, 05/22/2024 02:20:00 PM, [address], [facility] [address], [place], [id number], Progress Notes * ADORE PEARSONDOB:[birth year] (68 yo F)Acc No.[id number]:02/01/2024 Patient: ADORE RICHTER Provider: Kwaku Riojas DPM :1955 A ge:68 Y S ex:Female Date:02/01/2024 Address:[address] [facility] [place], [id number] Subjective: * Chief Complaints: * 1 . *General care. * Medical History: Objective: * Vitals: Assessment: Plan: * Treatment: * Billing Information: * Visit Code: * Procedure Codes: * Electronic signature of ELSY RIOJAS DPM on 04/30/2024 at 01:14 PM JOB PLACEMENT SPECIALIST Sign off status: Pending * Provider: Kwaku Riojas, DPM Date: 1 04/02/2023 Generated for Salty Santiago/Sudhakar on: 0 04/30/2024 01:14 PM JOB PLACEMENT SPECIALIST
--- OUTSIDE RECORDS SUMMARY | 2024-04-30 13:15 | XMS_ITS | Clinical Summary ---
Author Organization [facility] Address [address] [place] [address] Care Team Providers Care Technical Testing Engineer Name Role Phone Amado, Sara MELANIE Primary Care Provider [phone] Allergies Active Allergy Reactions Criticality Noted Date [...] 025 Assessment & Plan (03/20/2024 1:14 PM BOTTLING LINE ATTENDANT): No evidence of large vessel PVD ABIs and waveforms normal. 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 Can follow up with me as needed. Mixed hyperlipidemia 03/19/2024 Assessment & Plan (03/19/2024 9:51 AM BOTTLING LINE ATTENDANT): Stable continue simvastatin Primary hypertension 03/19/2024 Assessment & Plan (03/19/2024 9:52 AM BOTTLING LINE ATTENDANT): Stable continue lisinopril hydrochlorothiazide Encounters Date Type Department Care Team Description 03/19/2024 10:00 AM BOTTLING LINE ATTENDANT Ancillary Procedure [facility] at [address] [place] [address] Peripheral vascular disease, unspecified (HCC) 03/19/2024 9:30 AM BOTTLING LINE ATTENDANT Office Visit [facility] at [address] [place] [address] Shaggy Vasquez MD Peripheral vascular disease, unspecified (HCC) (Primary Dx); Mixed hyperlipidemia; Primary hypertension 03/19/2024 Orders Only [facility] at [address] [place] [address] Shaggy Vasquez MD Peripheral vascular disease, unspecified (HCC) (Primary Dx) from Last 3 Months Social History Tobacco Use Types Packs/Day Years Used Date Smoking Tobacco: Never Smokeless Tobacco: Never Comments Unknown Sex and Gender Information Value Date Recorded Sex Assigned at Not on file Legal Sex Female 10:54 AM CDT Gender Identity Not on file Sexual Orientation Not on file Obstetrics History Last Filed Vital Signs Vital Sign Reading Time Taken Comments Blood Pressure 134/82 03/19/2024 9:39 AM BOTTLING LINE ATTENDANT Pulse 82 03/19/2024 9:39 AM BOTTLING LINE ATTENDANT Temperature 36.4 C (97.6 F) 01/25/2023 1:38 PM BOTTLING LINE ATTENDANT Respiratory Rate - - Oxygen Saturation 100% 03/19/2024 9:39 AM BOTTLING LINE ATTENDANT Inhaled Oxygen Concentration - - Weight 54.4 kg (120 lb) 03/19/2024 9:39 AM BOTTLING LINE ATTENDANT Height 170.2 cm (5' 7 ) 03/19/2024 9:39 AM BOTTLING LINE ATTENDANT Body Mass Index 18.79 03/19/2024 9:39 AM BOTTLING LINE ATTENDANT Plan of Treatment Health Maintenance Due Date Last Done Comments Colon Cancer Screening-Colonoscopy 1955 Depression Screening 1955 Fall Risk Assessment 1955 Hepatitis C Screening 1955 DTaP/Tdap/Td Vaccine (1 - Tdap) 09/30/1967 Hepatitis B Screening 1974 Pneumococcal vaccine 65+ (1 of 1 - PCV) 2006 Zoster Vaccine (1 of 2) 2006 Breast Cancer Screening-Mammogram 01/18/2020 019, 01/17/2019 Osteoporosis Screening-Bone Density Scan 01/17/2021 01/17/2019 Well Visit 65+ 2021 Covid-19 Vaccine ( season) 2023 07/19/2021, 2020, 09/01/2020 Influenza Vaccine (#1) 2023 Procedures Procedure Name Priority Date/Time Associated Diagnosis Comments US ARTERIAL DOPPLER LOWER EXTREMITY BILATERAL Schedule Routine, Read Routine (OP Routine) 03/19/2024 10:41 AM BOTTLING LINE ATTENDANT Peripheral vascular disease, unspecified (HCC) from Last 3 Months Results * US Arterial Doppler Lower Extremity Bilateral (03/19/2024 10:41 AM BOTTLING LINE ATTENDANT) LV EF % CONS SCIMAGE Anatomical Region Laterality Modality Vascular Bilateral Ultrasound 03/19/2024 10:1 1 AM BOTTLING LINE ATTENDANT Narrative 03/21/2024 1:19 PM BOTTLING LINE ATTENDANT Vascular & Vein Surgery [address] [place] [address]. [place] [address] Lower Extremity Arterial Doppler Report Patient Name: DEA GUILLEN : 1955 Study Date: 03/19/2024 10:11:00 AM Gender: F Senior Etl Developer: Ni Leon RVT Location: [facility] Ref Provider: SHAGGY VASQUEZ Quality: Adequate Order Provider: SHAGGY VASQUEZ PROCEDURES: Arterial Report: Bilateral lower extremity arterial Doppler exam at rest. INDICATIONS: BLE toe wounds and I73.9 Peripheral vascular disease, unspecified. HISTORY: Hypertension. Hyperlipidemia. Diabetic. MEASUREMENTS: Right Value Left Value Rt Brachial Pressure 116 mmHg Lt Brachial Pressure 124 mmHg Rt SPEECH THERAPIST TECHNICIAN Pressure 157 mmHg Lt SPEECH THERAPIST TECHNICIAN Pressure 152 mmHg Rt DPA Pressure 145 [...] above. Electronically Signed By: Shaggy Vasquez MD Tomás 03/21/2024 1:17:56 PM BOTTLING LINE ATTENDANT Procedure Note Shaggy Vasquez MD - 03/21/2024 Vascular & Vein Surgery [facility] [place] [address] Lower Extremity Arterial Doppler Report Patient Name: DEA GUILLEN : 1955 Study Date: 03/19/2024 10:11:00 AM Gender: F Senior Etl Developer: [place] RVT Location: [facility] Ref Provider: SHAGGY VASQUEZ Quality: Adequate Order Provider: SHAGGY VASQUEZ PROCEDURES: Arterial Report: Bilateral lower extremity arterial Doppler exam at rest. INDICATIONS: BLE toe wounds and I73.9 Peripheral vascular disease, unspecified. HISTORY: Hypertension. Hyperlipidemia. Diabetic. MEASUREMENTS: Right Value Left Value Rt Brachial Pressure 116 mmHg Lt Brachial Pressure 124 mmHg Rt SPEECH THERAPIST TECHNICIAN Pressure 157 mmHg Lt SPEECH THERAPIST TECHNICIAN Pressure 152 mmHg Rt DPA Pressure 145 [...] above. Electronically Signed By: Shaggy Vasquez MD [facility] 03/21/2024 1:17:56 PM BOTTLING LINE ATTENDANT us Shaggy Vasquez MD [facility] PROCEDURES Final Result from Last 3 Months Insurance MEDICARE [facility] MEDICARE Address: [facility] [address] [place] [address] Care Teams Technical Testing Engineer Relationship Specialty Start Date End Date Zoey Fischer PA [address] [place] [id number] PCP - General Family Practice 12/20/22
--- NOTE | 2024-04-30 14:30 | NEURO_ITS ---
Impression: # Diabetic complains of numbness of feet. . ? # Moderate axonal sensorimotor neuropathy. ? # Needle/EMG exam neurogenic. ? # Clinical correlation recommended. Nerve Conduction Studies Anti Sensory Summary Table ?Stim Site NR Peak (ms) P-T Amp (?V) Site1 Site2 Delta-P (ms) Dist (cm) Alexander (m/s) Left Sup Fibular Anti Sensory (Ant Lat Mall)??? NO RESPONSE 14 cm NR 14 cm Ant Lat Mall 16.0 Right Sup Fibular Anti Sensory (Ant Lat Mall)??? NO RESPONSE 14 cm NR 14 cm Ant Lat Mall 16.0 Left Sural Anti Sensory (Lat Mall)??? NO RESPONSE Calf NR Calf Lat Mall 16.0 Right Sural Anti Sensory (Lat Mall)??? NO RESPONSE Calf NR Calf Lat Mall 16.0 Motor Summary Table ?Stim Site NR Onset (ms) O-P Amp (mV) Site1 Site2 Delta-0 (ms) Dist (cm) Alexander (m/s) Left Peroneal Motor (Vastus Med) Ankle ? 5.8 2.0 Popit Ankle 9.0 37.0 41 Popit ? 14.8 2.4 Right Peroneal Motor (Vastus Med) Ankle ? 5.5 2.4 Popit Ankle 10.1 38.0 38 Popit ? 15.6 2.4 Left Tibial Motor (Abd Dumas Brev) Ankle ? 6.2 0.9 Knee Ankle 10.8 38.0 35 Knee ? 17.0 0.7 Right Tibial Motor (Abd Dumas Brev) Ankle ? 5.9 0.6 Knee Ankle 11.1 40.0 36 Knee ? 17.0 0.5 F Wave Studies ?NR F-Lat (ms) L-R F-Lat (ms) Left Peroneal (Mrkrs) (EDB) ? 59.72 2.00 Right Peroneal (Mrkrs) (EDB) ? 61.72 2.00 Left Tibial (Mrkrs) (Abd Hallucis) ? 59.53 0.82 Right Tibial (Mrkrs) (Abd Hallucis) ? 60.35 0.82 EMG ?Side Muscle Nerve Root Ins Act Fibs Amp Dur Recrt Comment Right AntTibialis Dp Br Fibular L4-5 Nml Nml Decr Nml +1 Right Gastroc Tibial S1-2 Nml Nml Decr Nml +1 Right Fibularis Long Sup Br Fibular L5-S1 Nml Nml Decr Nml +1 Right Flex Dig Long Tibial L5-S2 Nml Nml Decr >12ms +2 Right Ext Dig Brev Dp Br Fibular L5, S1 Nml Nml Decr >12ms +3 Right QuadratusFem QuadFemoris L4-5, S1 Nml Nml Nml Nml Nml Left AntTibialis Dp Br Fibular L4-5 Nml Nml Decr Nml +1 Left Gastroc Tibial S1-2 Nml Nml Decr Nml +1 Left Fibularis Long Sup Br Fibular L5-S1 Nml Nml Decr Nml +1 Left Flex Dig Long Tibial L5-S2 Nml Nml Decr >12ms +2 Left Ext Dig Brev Dp Br Fibular L5, S1 Nml Nml Decr >12ms +3 Left QuadratusFem QuadFemoris L4-5, S1 Nml Nml Nml Nml Nml ? MTDD
== END 2024-04-30 13:09 | disposition home or self-care (01) ==
LOC: ANHNEURO 13:09
PROVIDERS: PCP Physician Assistant Medical; Visit Provider Psychiatry & Neurology Neurology
DX: E11.42 Type 2 diabetes mellitus with diabetic polyneuropathy (principal); E53.8 Deficiency of other specified B group vitamins
CPT/HCPCS: 95886; 95910